=== PATIENT | male | born 1990 | race African-American/Black ===

== ENCOUNTER 2018-04-18 21:56 | Emergency (ER) | payer SELFPAY ==
--- NOTE | 2018-04-19 00:42 | ER Document Report ---
ED General - General Chief Complaint: Abscess Stated Complaint: POSSIBLE BUG BITE ON LEG Time Seen by Provider: 04/18/18 22:58 Notes: Patient is a 27-year-old male without chronic medical problems who presents with 3 days of progressively worsening area of swelling and pain to the left lateral calf. He describes as a throbbing, aching, constant pain worsened by touching the area. Nothing improves the pain. Denies history of similar symptoms. No fever or constitutional symptoms. He has not seen his general doctor regarding today's concerns. He is concerned that this could be a spider bite. TRAVEL OUTSIDE OF THE [place] IN LAST 30 DAYS: No - Related Data Allergies/Adverse Reactions: Sulfa (Sulfonamide Antibiotics) Allergy (Verified 04/18/18 21:57) Past Medical History - General Information source: Patient - Social History Smoking Status: Current Every Day Smoker Chew tobacco use (# tins/day): No Frequency of alcohol use: Occasional Drug Abuse: None Lives with: Spouse/Significant other Family History: Reviewed & Not Pertinent Patient has suicidal ideation: No Patient has homicidal ideation: No Pulmonary Medical History: Reports: Hx Asthma Renal/ Medical History: Denies: Hx Peritoneal Dialysis Review of Systems - Review of Systems Notes: Constitutional: Negative for fever. HENT: Negative for sore throat. Eyes: Negative for visual changes. Cardiovascular: Negative for chest pain. Respiratory: Negative for shortness of breath. Gastrointestinal: Negative for abdominal pain, vomiting or diarrhea. Genitourinary: Negative for dysuria. Musculoskeletal: Negative for back pain. Skin: Positive for left leg abscess Neurological: Negative for headaches, weakness or numbness. 10 point ROS negative except as marked above and in HPI. Physical Exam - Vital signs Vitals: Temp Pulse Resp BP Pulse Ox 98.5 F 73 18 121/65 97 04/18/18 22:07 04/18/18 22:07 04/18/18 22:07 04/18/18 22:07 04/18/18 22:07 Interpretation: Normal Notes: PHYSICAL EXAMINATION: GENERAL: Well-appearing, well-nourished and in no acute distress. HEAD: Atraumatic, normocephalic. EYES: Pupils equal round and reactive to light, extraocular movements intact, sclera anicteric, conjunctiva are normal. ENT: nares patent, oropharynx clear without exudates. Moist mucous membranes. NECK: Normal range of motion, supple without lymphadenopathy LUNGS: Breath sounds clear to auscultation bilaterally and equal. No wheezes rales or rhonchi. HEART: Regular rate and rhythm without murmurs ABDOMEN: Soft, nontender, normoactive bowel sounds. No guarding, no rebound. No masses appreciated. EXTREMITIES: Normal range of motion, no pitting or edema. No cyanosis. NEUROLOGICAL: No focal neurological deficits. Moves all extremities spontaneously and on command. PSYCH: Normal mood, normal affect. SKIN: Warm, Dry, normal turgor, no rashes or lesions noted. There is a 1 x 1 cm abscess on the left lateral central calf Course - Re-evaluation Re-evalutation: 04/19/18 00:40 Patient presents with a 1 x 1 cm abscess on the left lateral mid calf without surrounding erythema or cellulitis. The patient has no additional complaints. Vitals otherwise within normal limits. The area was incised and drained without complication. The patient is allergic to sulfa antibiotics and given the small nature of the abscess I do not believe he requires antibiotic coverage at this time point. At this time will discharge with return precautions and follow-up recommendations. Verbal discharge instructions given a the bedside and opportunity for questions given. Medication warnings reviewed. Patient is in agreement with this plan and has verbalized understanding of return precautions and the need for primary care follow-up in the next 24-72 hours. - Vital Signs Vital signs: Temp Pulse Resp BP Pulse Ox 98.4 F 76 16 124/72 100 04/19/18 00:54 04/19/18 00:54 04/19/18 00:54 04/19/18 00:54 04/19/18 00:54 Procedures - Incision and Drainage Left Leg Type: Simple Anesthetic type: 1% Lidocaine mL's of anesthetic: 3 Blade size: 11 I&D procedure: Betadine prep applied Incision Method: Incision made by scalpel Amount/type of drainage: 3 cc purulent drainage Discharge - Discharge Clinical Impression: Abscess of left leg Condition: Good Disposition: HOME, SELF-CARE Additional Instructions: You were seen for an abscess that required drainage. Please clean this area with soap and water twice daily and apply a topical antibiotic. Dress the area after each cleaning. Please return if you develop fever, vomiting, the pain at the site worsens, you notice spreading redness from the area, or you have any other symptoms that are concerning to you.
[2018-04-19 00:55] VITALS: BP 124/72
== END 2018-04-19 00:55 | disposition home or self-care (01) ==
LOC: ER 21:56
PROC: 0H9LXZZ Drainage of Left Lower Leg Skin, External Approach (ICD-10-PCS; principal; 2018-04-18)
DX: L02.416 Cutaneous abscess of left lower limb (principal); F17.200 Nicotine dependence, unspecified, uncomplicated; J45.909 Unspecified asthma, uncomplicated
CPT/HCPCS: 99283